=== PATIENT | female | born 1985 | race Two or more races ===

== ENCOUNTER 2017-10-15 21:58 | Emergency (ER) | payer OTHER ==
[~2017-10-15] VITALS: Ht 157.5 cm; Wt 60.4 kg
[2017-10-15 23:09] LABS: ADD MIUA? YES; BILIRUBIN NEGATIVE; BLOOD LARGE; COLOR YELLOW ((YELLOW)); GLUCOSE (STRIP) NEGATIVE; KETONES NEGATIVE; LEUKOCYTES NEGATIVE; NITRITE NEGATIVE; PROTEIN (STRIP) NEGATIVE; SPECIFIC GRAVITY 1.005 (1.000-1.030); UROBILINOGEN 0.2 MG/DL (0.2-1.0)
[2017-10-15 23:33] LABS: BACTERIA 1+ /HPF; CASTS NONE SEEN /LPF; CRYSTALS NONE SEEN; EPITHELIAL CELLS RARE /HPF; MUCUS NONE SEEN /LPF; RED BLOOD CELLS TNTC /HPF (0-5); UCUL ADDED? YES; WHITE BLOOD CELLS RARE /HPF (0-5)
[2017-10-15 23:39] LABS: HEMATOCRIT 40.4 % (36.0-46.0); MCH 28.8 PG (29.0-34.0); MCHC 33.4 G/DL (30.0-36.0); MCV 86.3 FL (83-99); MEAN PLAT.VOLUME 10.3 uM^3 (9.5-12.4); PLATELET COUNT 304 K/uL (156-360); RBC DIS.WIDTH-SD 44.1 % (39-53); RED BLOOD COUNT 4.68 M/uL (3.80-5.20); WHITE BLOOD COUNT 17.2 K/uL (4.1-10.2)
[2017-10-15 23:48] LABS: CHLORIDE 106 mEq/L (99-109); POTASSIUM 4.7 mEq/L (3.7-5.4); SODIUM 138 mEq/L (136-147)
[2017-10-15 23:50] LABS: GLUCOSE 122 mg/dL (70-99)
[2017-10-15 23:51] LABS: ANION GAP 13 MEQ/L (2-14)
[2017-10-15 23:54] LABS: GFR ESTIMATE (CALCULATED) > 59 mL/min/
[2017-10-15 23:55] LABS: UREA NITROGEN (BUN) 8 mg/dL (9-23)
[2017-10-16 00:03] LABS: QUANTITATIVE HCG 3589.7 MIU/ML
[2017-10-16 01:45] VITALS: BP 116/83
== END 2017-10-16 01:52 | disposition home or self-care (01) ==
LOC: EME 21:58
PROVIDERS: Physician Assistant
DX: O03.9 Complete or unspecified spontaneous abortion without complication (principal); D25.9 Leiomyoma of uterus, unspecified
CPT/HCPCS: 76801; 80048; 81003; 84702; 85027; 86900; 86901; 87086; 99281; 99284